=== PATIENT | male | born 1995 | race Caucasian/White ===

== ENCOUNTER 2017-06-13 00:26 | Emergency (ER) | payer OTHER ==
[~2017-06-13] VITALS: Ht 165.1 cm; Wt 56.8 kg
[2017-06-13] MEDS ORDERED: ACETAMINOPHEN 500 MG TABLET PO ONE (01:00)
[2017-06-13] MEDS ORDERED: IBUPROFEN 600 MG TABLET PO ONE (01:00)
[2017-06-13] MEDS ORDERED: BACITRACIN 0.9 GM PACKET OINTMENT TP ONE (01:00)
[2017-06-13 02:08] VITALS: BP 124/82
== END 2017-06-13 02:28 | disposition home or self-care (01) ==
LOC: EMS 00:26
DX: S06.0X9A Concussion with loss of consciousness of unspecified duration, initial encounter (principal); S20.212A Contusion of left front wall of thorax, initial encounter; S80.211A Abrasion, right knee, initial encounter; S80.212A Abrasion, left knee, initial encounter; S00.81XA Abrasion of other part of head, initial encounter; S40.211A Abrasion of right shoulder, initial encounter; J45.909 Unspecified asthma, uncomplicated; F12.90 Cannabis use, unspecified, uncomplicated; Z88.0 Allergy status to penicillin; Y04.0XXA Assault by unarmed brawl or fight, initial encounter; Y93.01 Activity, walking, marching and hiking; Y92.89 Other specified places as the place of occurrence of the external cause; Y99.8 Other external cause status
CPT/HCPCS: 70450; 71101; 99284

== ENCOUNTER 2017-06-26 23:24 | Emergency (ER) | payer OTHER ==
[~2017-06-26] VITALS: Ht 152.4 cm; Wt 58.2 kg
[2017-06-27] MEDS ORDERED: KETOROLAC TROMETHAMINE 60 MG/2 ML VIAL IM ONE (02:00)
[2017-06-27] MEDS ORDERED: CLINDAMYCIN HCL 150 MG CAPSULE PO ONE (02:00)
[2017-06-27 02:13] VITALS: BP 110/70
== END 2017-06-27 02:37 | disposition home or self-care (01) ==
LOC: EMS 23:25
DX: S02.5XXA Fracture of tooth (traumatic), initial encounter for closed fracture (principal); J45.909 Unspecified asthma, uncomplicated; F12.90 Cannabis use, unspecified, uncomplicated; F11.90 Opioid use, unspecified, uncomplicated; Z88.0 Allergy status to penicillin; X58.XXXA Exposure to other specified factors, initial encounter; Y93.89 Activity, other specified; Y92.89 Other specified places as the place of occurrence of the external cause; Y99.8 Other external cause status
CPT/HCPCS: 96372; 99283; J1885

== ENCOUNTER 2018-01-02 10:09 | Emergency (ER) | payer OTHER ==
[~2018-01-02] VITALS: Ht 165.1 cm; Wt 56.8 kg
[2018-01-02 12:00] VITALS: BP 140/78
[2018-01-02] MEDS ORDERED: IBUPROFEN 100 MG/5 ML SUSPENSION UDCUP PO ONE (12:00)
== END 2018-01-02 12:01 | disposition home or self-care (01) ==
LOC: EMS 10:11
DX: J02.9 Acute pharyngitis, unspecified (principal); R11.0 Nausea; J45.909 Unspecified asthma, uncomplicated; Z88.0 Allergy status to penicillin
CPT/HCPCS: 99283

== ENCOUNTER 2019-04-19 21:29 | Emergency (ER) | payer OTHER ==
[~2019-04-19] VITALS: Ht 165.1 cm; Wt 61.4 kg
[2019-04-19] MEDS ORDERED: PERTUSS(ACELL),DIPH,TET VAC/PF 0.5 ML VIAL IM ONE (22:30)
[2019-04-20 00:31] VITALS: BP 126/79
== END 2019-04-20 00:33 | disposition home or self-care (01) ==
LOC: EMS 21:30
DX: S61.212A Laceration without foreign body of right middle finger without damage to nail, initial encounter (principal); R93.7 Abnormal findings on diagnostic imaging of other parts of musculoskeletal system; J45.909 Unspecified asthma, uncomplicated; F12.90 Cannabis use, unspecified, uncomplicated; F11.90 Opioid use, unspecified, uncomplicated; F14.90 Cocaine use, unspecified, uncomplicated; F17.210 Nicotine dependence, cigarettes, uncomplicated; Z88.0 Allergy status to penicillin; W45.8XXA Other foreign body or object entering through skin, initial encounter; Y93.89 Activity, other specified; Y92.89 Other specified places as the place of occurrence of the external cause; Y99.8 Other external cause status
CPT/HCPCS: 90471; 90715